=== PATIENT | male | born 1955 | race Caucasian/White ===

== ENCOUNTER → 2016-07-02 | Outpatient (CLI) | payer OTHER ==
[~2016-07-02] MED LIST: CHOLESTEROL MEDS PO; CYCL10TA9 PO; HYDR-1231 PO; [UNRECOGNIZED DRUG - REMARK] PO
--- NOTE | 2016-07-02 14:23 | Diagnostic Imaging Report ---
PROCEDURE: CT urinary tract, rule out kidney stone. TECHNIQUE: Multiple contiguous axial images were obtained through the abdomen and pelvis without the use of intravenous contrast. INDICATION: Right flank pain x1 week. COMPARISON: None. FINDINGS: Included views of the lung bases show 4 mm micronodular density within the posterior margins of the left lower lobe (image 3, series 2). CT abdomen: There is a 7 mm calculus within the proximal right ureter near the UPJ. As a result, there is moderate proximal hydronephrosis. There is also a large nonobstructive calculus within the superior pole of the right kidney measuring 1.4 x 0.9 cm. Punctate nonobstructive calculus is also seen within the inferior pole of the right kidney. A few punctate nonobstructive renal calculi are also noted on the left. No ureteral calculi are seen on the left. Additionally, there is no hydroureteronephrosis or other evidence of obstruction on the left. No renal mass-type lesions are identified on this noncontrast exam. The spleen, liver, adrenal glands, and pancreas have an unremarkable noncontrast CT appearance as well. Small bowel loops are nondistended. Normal appendix is identified. There is colonic diverticulosis, but no CT evidence of acute diverticulitis. There is no loculated fluid collection, free fluid, nor free air. No abnormal mesenteric or retroperitoneal adenopathy is seen. Bony structures show no acute abnormalities. CT pelvis: Urinary bladder is unopacified. No calculi are seen within the urinary bladder. There is no loculated fluid collection, free fluid, nor free air within the pelvis. No abnormal lymph nodes are seen. Bony structures show no acute abnormalities. IMPRESSION: 1. Moderate right-sided hydronephrosis secondary to a large 7 mm calculus in the proximal right ureter at the UVJ. 2. Additional nonobstructive bilateral renal calculi as described above. Again, there is an additional large stone within the superior pole of the right kidney. 3. Colonic diverticulosis, but no CT evidence of acute diverticulitis. 4. Small 4 mm subpleural micronodule within the posterior margins of the left lower lobe. If patient is in a high-risk category such as history of smoking, one-year followup is recommended. Alternatively, if patient is in a low-risk category, no additional followup may be indicated. Dictated by: Dictated on workstation # [id number]
== END ==
LOC: RAD 13:40
DX: N13.30 Unspecified hydronephrosis (principal); N20.0 Calculus of kidney; K57.90 Diverticulosis of intestine, part unspecified, without perforation or abscess without bleeding; R91.1 Solitary pulmonary nodule
CPT/HCPCS: 74176

== ENCOUNTER 2016-07-05 05:40 | Outpatient (CLI) | payer OTHER ==
[~2016-07-05] VITALS: Ht 177.8 cm; Wt 74.8 kg
[2016-07-05] MEDS ORDERED: FENO134C PO (13:28)
[2016-07-05] MEDS ORDERED: BENA20TA2 PO (13:28)
== END 2016-07-05 13:30 ==
LOC: PREOP 05:40
PROVIDERS: ATTEND Urology
DX: Z01.818 Encounter for other preprocedural examination (principal); N20.0 Calculus of kidney

== ENCOUNTER 2016-07-09 08:18 | Day surgery (SDC) | payer OTHER ==
[~2016-07-09] VITALS: Ht 177.8 cm; Wt 74.8 kg
[~2016-07-09 08:18] MED LIST changes: +BENA20TA2 PO; +FENO134C PO
--- NOTE | 2016-07-09 08:40 | Progress Note-Pre Operative ---
Pre-Operative Progress Note H&P Reviewed The H&P was reviewed, patient examined and no changes noted. Date H&P Reviewed: July 09, 2016 Time H&P Reviewed: 08:40 Pre-Operative Diagnosis: RT RENAL STONE KAMLESH DU MD July 09, 2016 8:40 am
--- NOTE | 2016-07-09 08:41 | Progress Note-Post Operative ---
Post-Operative Progess Note Surgeon (s)/Chair Car Driver (s) Surgeon KAMLESH DU MD Chair Car Driver: N/A Pre-Operative Diagnosis RT URETERAL AND BILATERAL RENAL STONES Post-Operative Diagnosis SAME Procedure & Operative Findings Date of Procedure 07/09/16 Procedure Performed/Findings RT ESWL Anesthesia Type GENERAL Estimated Blood Loss Estimated blood loss (mL): N/A Specimens/Packing Specimens Removed N/A KAMLESH DU MD July 09, 2016 8:41 am
--- NOTE | 2016-07-09 08:43 | Discharge Inst-Urology ---
Discharge Inst-Urology Discharge Medications New, Converted, or Re-newed RX: RX on Chart Patient Instructions/Follow Up Plan Please make appointment to been seen in office Saturday 07/22. KUB prior to it KUB on way home Post ESWL instructions Increase oral fluids for 48 hours and then as needed. Diet and Activity as tolerated. If questions or concerns contact your physician Or seek help at emergency department. KAMLESH DU MD July 09, 2016 8:43 am
--- NOTE | 2016-07-09 08:47 | Progress Note-Pre Operative ---
Pre-Operative Progress Note H&P Reviewed The H&P was reviewed, patient examined and no changes noted. Date H&P Reviewed: July 09, 2016 Time H&P Reviewed: 08:40 Pre-Operative Diagnosis: RT URETERAL AND BILATERAL RENAL STONES KAMLESH DU MD July 09, 2016 8:47 am
[2016-07-09] MEDS ORDERED: cefTRIAXone 1 GM (ROCEPHIN) VIAL ONE (09:07)
[2016-07-09] MEDS ORDERED: NS (IVPB) 50 ML ONE (09:07)
[2016-07-09] MEDS ORDERED: cefTRIAXone 1 GM/NS 50 ML IVPB IV ONE ×2 (09:15)
[2016-07-09] MEDS ORDERED: CATHETER FLUSH 10 ML SYR IV PRN (09:15)
[2016-07-09] MEDS: LACTATED RINGERS 1,000 ML IV PRN ×2 (09:26→10:58)
[2016-07-09] MEDS ORDERED: fentaNYL INJECTION 100 MCG/2 ML AMP ONE (10:14)
[2016-07-09] MEDS ORDERED: MIDAZOLAM 2 MG/2 ML (VERSED) VIAL ONE (10:14)
[2016-07-09 10:30] VITALS: BP 149/99
--- NOTE | 2016-07-09 11:03 | Diagnostic Imaging Report ---
EXAMINATION: KUB. INDICATION: Right-sided stones. FINDINGS: There is a 1.5 cm upper pole right kidney stone and a 1.1 cm proximal right ureteric stone at the upper L4 level. There are multiple phleboliths in the pelvis. IMPRESSION: Proximal right ureteric 1.1 cm stone. 1.5 cm upper pole right kidney stone. Dictated by: Dictated on workstation # [id number]
[2016-07-09] MEDS ORDERED: proPOfol 200 MG/20 ML (DIPRIVAN) VIAL IV ONE (11:19)
[2016-07-09] MEDS ORDERED: DEXAMETHASONE PF 10 MG/ML (DECADRON) VIAL ONE (11:19)
[2016-07-09] MEDS ORDERED: LACTATED RINGERS 2,000 ML IV ONE (11:19)
[2016-07-09] MEDS ORDERED: LIDOCAINE PF 2% 10 ML (XYLOCAINE) AMP ONE (11:19)
[2016-07-09] MEDS ORDERED: KETOROLAC 30 MG/ML VIAL ONE (11:19)
[2016-07-09] MEDS ORDERED: SEVOFLURANE (ULTANE) 15 ML INHAL SOLN ONE (11:19)
[2016-07-09] MEDS ORDERED: FUROSEMIDE 40 MG/4 ML INJ (LASIX) ONE (11:19)
[2016-07-09] MEDS ORDERED: morphine INJ 10 MG/ML 1ML (SYR OR VIAL) IVP PRN (11:30)
[2016-07-09] MEDS ORDERED: MEPERIDINE (DEMEROL) INJ 50 MG/ML IVP PRN (11:30)
[2016-07-09] MEDS ORDERED: ONDANSETRON 4 MG/2 ML (SDV) Z0FRAN IVP PRN (11:30)
[2016-07-09 12:00] VITALS: BP 143/84
[2016-07-09] MEDS ORDERED: NITR-65 PO (12:22)
[2016-07-09] MEDS ORDERED: TAMS0.4C98 PO (12:22)
[2016-07-09] MEDS ORDERED: HYDR-3876 PO (12:22)
[2016-07-09 12:30] VITALS: BP 139/83
[2016-07-09 13:00] VITALS: BP 127/85
--- NOTE | 2016-07-09 13:11 | Diagnostic Imaging Report ---
INDICATION: Status post ESWL. COMPARISON: Earlier same day. FINDINGS: 2 radiographic views of the abdomen were obtained. Again identified are extraosseous calcifications projecting of the superior pole of the right kidney and proximal right ureter. These are essentially unchanged in location. Multiple extraosseous calcifications are also seen projecting over the mid lower pelvis. These may be on the basis of pelvic phleboliths, although distal ureteral or urinary bladder calculi cannot be entirely excluded. No unexpected radiopaque foreign bodies are seen. Small bowel loops are nondistended. There is no large collection of free intraperitoneal air. IMPRESSION: 1. Right-sided renal and ureteral calculi stable in position when compared to earlier same day. 2. Probable pelvic phleboliths, although distal ureteral or urinary bladder calculi cannot be excluded. Dictated by: Dictated on workstation # [id number]
[2016-07-09 13:30] VITALS: BP 127/85
--- NOTE | 2016-07-09 18:33 | OPERATIVE REPORT ---
DATE OF SERVICE: 07/09/2016 PREOPERATIVE DIAGNOSIS: Right proximal ureteral and bilateral renal stones. POSTOPERATIVE DIAGNOSIS: Right proximal ureteral and bilateral renal stones. OPERATION PERFORMED: Right extracorporeal shock wave lithotripsy. ANESTHESIA: General. COMPLICATIONS: None. DESCRIPTION OF PROCEDURE: Under satisfactory anesthesia, with the patient in supine position on the ESWL table, we localized the right proximal ureteral stone and delivered shocks at kV of 6, a total of 3000 shocks completely fragmented the stone with good layering and fainting. The patient was given 40 mg of Lasix and 30 mg of Toradol IV at the end of the procedure. He tolerated the procedure well and was taken to the recovery room in stable condition. PLAN: I will see him back in a couple of weeks at the office and if the KUB shows good results we will proceed with ESWL of the upper pole right renal stone. Job ID: [id number] DocumentID: [id number] Dictated Date: 07/09/2016 11:02:58 Work Checker Date: 07/09/2016 18:32:53 Dictated By: KAMLESH DU MD
== END 2016-07-09 13:30 | disposition home or self-care (01) ==
LOC: SDC 08:18
PROVIDERS: ATTEND Urology
DX: N20.2 Calculus of kidney with calculus of ureter (principal); I10 Essential (primary) hypertension; E78.5 Hyperlipidemia, unspecified; Z79.899 Other long term (current) drug therapy
CPT/HCPCS: 74000; 87081

== ENCOUNTER → 2016-07-18 | Outpatient (CLI) | payer OTHER ==
[~2016-07-18] MED LIST changes: +HYDR-3876 PO; +NITR-65 PO; +TAMS0.4C98 PO
== END ==
LOC: PREOP 05:31
PROVIDERS: ATTEND Urology
DX: Z01.818 Encounter for other preprocedural examination (principal); N20.0 Calculus of kidney

== ENCOUNTER → 2016-07-22 | Outpatient (CLI) | payer OTHER ==
[~2016-07-22] MED LIST changes: +NITR-68 PO
--- NOTE | 2016-07-22 15:52 | Diagnostic Imaging Report ---
KUB. INDICATION: Right ureteric stone post lithotripsy. FINDINGS: There is a 1.6 cm upper pole right kidney stone. There are other stones in the proximal right ureter measuring up to 5 mm in size. These are probably fragments after lithotripsy of a larger stone. Other more proximal fragments about the UPJ level are suggested. There are multiple pelvic calcifications, likely phleboliths. IMPRESSION: Right kidney and proximal ureteric stones. Dictated by: Dictated on workstation # [id number]
== END ==
LOC: RAD 15:17
PROVIDERS: ATTEND Urology
DX: N20.2 Calculus of kidney with calculus of ureter (principal)
CPT/HCPCS: 74000

== ENCOUNTER → 2016-07-23 | Day surgery (SDC) | payer OTHER ==
[~2016-07-23] VITALS: Ht 177.8 cm; Wt 74.8 kg
[~2016-07-23] MED LIST changes: +KETOROLAC 30 MG/ML VIAL IVP ONE; +LACTATED RINGERS 1,000 ML IV ONE; +LIDOCAINE PF 2% 5 ML (XYLOCAINE) VIAL ONE; +MIDAZOLAM 2 MG/2 ML (VERSED) VIAL ONE; +NS (IVPB) 50 ML ONE; +ONDANSETRON 4 MG/2 ML (SDV) Z0FRAN ONE; +SEVOFLURANE (ULTANE) 15 ML INHAL SOLN ONE; +cefTRIAXone 1 GM (ROCEPHIN) VIAL ONE; +cefTRIAXone 1 GM/NS 50 ML IVPB IV ONE; +fentaNYL INJECTION 100 MCG/2 ML AMP IVP PRN; +fentaNYL INJECTION 100 MCG/2 ML AMP ONE; +proPOfol 200 MG/20 ML (DIPRIVAN) VIAL IV ONE
[2016-07-23 06:35] VITALS: BP 122/77
[2016-07-23] MEDS: LACTATED RINGERS 1,000 ML IV PRN ×2 (07:00→07:50)
--- NOTE | 2016-07-23 07:00 | Progress Note-Pre Operative ---
Pre-Operative Progress Note H&P Reviewed The H&P was reviewed, patient examined and no changes noted. Date Seen by Provider: Jul 23, 2016 Time Seen by Provider: 07:00 Date H&P Reviewed: Jul 23, 2016 Time H&P Reviewed: 07:00 Pre-Operative Diagnosis: RT PROXIMAL URETERAL AND RENAL STONES KAMLESH DU MD Jul 23, 2016 7:00 am
--- NOTE | 2016-07-23 07:46 | Progress Note-Post Operative ---
Post-Operative Progess Note Surgeon (s)/Caseworker Protective Services (s) Surgeon KAMLESH DU MD Caseworker Protective Services: N/A Pre-Operative Diagnosis RT PROXIMAL URETERAL AND RENAL STONES Post-Operative Diagnosis SAME Procedure & Operative Findings Date of Procedure 07/23/16 Procedure Performed/Findings RT ESWL, FINDINGS PER ABOVE Anesthesia Type GENERAL Estimated Blood Loss Estimated blood loss (mL): N/A Specimens/Packing Specimens Removed N/A KAMLESH DU MD Jul 23, 2016 7:46 am
--- NOTE | 2016-07-23 07:51 | Discharge Inst-Urology ---
Discharge Inst-Urology Discharge Medications New, Converted, or Re-newed RX: RX on Chart Patient Instructions/Follow Up Plan Please make appointment to been seen in office Saturday 08/05, KUB prior to it KUB on way home Post ESWL instructions Increase oral fluids for 48 hours and then as needed. Diet and Activity as tolerated. If questions or concerns contact your physician Or seek help at emergency department. KAMLESH DU MD Jul 23, 2016 7:51 am
--- NOTE | 2016-07-23 08:24 | Diagnostic Imaging Report ---
INDICATION: Post ESWL Study compared to 07/22/2016. Largest opaque calculus projects over the upper pole calyx of the right kidney and measures about 16 mm in maximal dimension unchanged. Stones project between the distal tips of the right third and fourth lumbar transverse processes the largest measuring 7.2 mm cephalocaudal is not significantly changed. There are multiple pelvic phleboliths which could obscure distal ureteral stone burden. Substantial change from priors not clearly evident. IMPRESSION: Right-sided nephrolithiasis and ureteral stones, pelvic calcifications appearing unchanged. Dictated by: Dictated on workstation # [id number]
--- NOTE | 2016-07-23 08:40 | Anesthesia-General Post-Op ---
General Patient Condition Mental Status/LOC: Same as Preop Cardiovascular: Satisfactory Nausea/Vomiting: Absent Respiratory: Satisfactory Pain: Controlled Complications: Absent Post Op Complications Complications None Follow Up Care/Instructions Patient Instructions None needed. Anesthesia/Patient Condition Patient Condition Patient is doing well, no complaints, stable vital signs, no apparent adverse anesthesia problems. No complications reported per nursing. [place] [facility] [place]: MAURY Narvaez DO Jul 23, 2016 08:40
[2016-07-23 09:00] VITALS: BP 115/67
[2016-07-23 09:30] VITALS: BP 124/82
--- NOTE | 2016-07-23 09:53 | Diagnostic Imaging Report ---
EXAMINATION: KUB. INDICATION: Right ureteric stones post lithotripsy. FINDINGS: There is interval passage or extraction of the right ureteric stone. The right kidney stone measuring 1.5 CM is again seen. Multiple other calcifications of the pelvis are likely phleboliths. No definite remaining right ureteric stone. IMPRESSION: 1.5 CM right kidney stone. Dictated by: Dictated on workstation # [id number]
[2016-07-23 10:00] VITALS: BP 118/75
[2016-07-23 10:12] VITALS: BP 118/75
--- NOTE | 2016-07-23 11:02 | OPERATIVE REPORT ---
DATE OF SERVICE: 07/23/2016 PREOPERATIVE DIAGNOSIS: Right proximal urethral and bilateral renal stones. POSTOPERATIVE DIAGNOSIS: Right proximal urethral and bilateral renal stones. OPERATION PERFORMED: Right ESWL. SURGEON: Floyd Du MD ANESTHESIA: General. COMPLICATIONS: None. PROCEDURE: Under satisfactory general anesthesia, the patient in supine position on the ESWL table, the right proximal ureteral stone was localized. Shock was delivered at gradually increasing kV to 6, a total of 3000 shocks completed fragmented the stone and we were unable to see it. Taking a look at and mapping the right upper renal stone, it looked exactly taking the shape of the upper pole marlen. There was no way for the stone to go through the infundibulum so I did not see any reason to fragment it and carry more chance of fragments and possibly obstruction since the stone is asymptomatic and not causing any harm at all. So I left it alone, did not do ESWL on it. The patient received 30 mg of Toradol and 40 mg of Lasix at the end of the procedure. He tolerated the procedure and anesthesia well and was sent to the recovery room in stable condition. Job ID: [id number] DocumentID: [id number] Dictated Date: 07/23/2016 07:53:55 Dividend Deposit Entry Clerk Date: 07/23/2016 11:01:08 Dictated By: FLOYD DU MD
--- NOTE | 2016-07-23 14:32 | Anesthesia-General Post-Op ---
General Patient Condition Mental Status/LOC: Same as Preop Cardiovascular: Satisfactory Nausea/Vomiting: Absent Respiratory: Satisfactory Pain: Controlled Complications: Absent Post Op Complications Complications None Follow Up Care/Instructions Patient Instructions None needed. Anesthesia/Patient Condition Patient Condition Patient is doing well, no complaints, stable vital signs, no apparent adverse anesthesia problems. No complications reported per nursing. [place] [facility] [place]: MAURY Narvaez DO Jul 23, 2016 14:32
== END | disposition home or self-care (01) ==
LOC: SDC 06:29
PROVIDERS: ATTEND Urology
DX: N20.2 Calculus of kidney with calculus of ureter (principal); I10 Essential (primary) hypertension; E78.00 Pure hypercholesterolemia, unspecified; Z79.899 Other long term (current) drug therapy
CPT/HCPCS: 74000; 87081

== ENCOUNTER → 2016-08-05 | Outpatient (CLI) | payer OTHER ==
[~2016-08-05] MED LIST changes: -KETOROLAC 30 MG/ML VIAL IVP ONE; -LACTATED RINGERS 1,000 ML IV ONE; -LIDOCAINE PF 2% 5 ML (XYLOCAINE) VIAL ONE; -MIDAZOLAM 2 MG/2 ML (VERSED) VIAL ONE; -NS (IVPB) 50 ML ONE; -ONDANSETRON 4 MG/2 ML (SDV) Z0FRAN ONE; -SEVOFLURANE (ULTANE) 15 ML INHAL SOLN ONE; -cefTRIAXone 1 GM (ROCEPHIN) VIAL ONE; -cefTRIAXone 1 GM/NS 50 ML IVPB IV ONE; -fentaNYL INJECTION 100 MCG/2 ML AMP IVP PRN; -fentaNYL INJECTION 100 MCG/2 ML AMP ONE; -proPOfol 200 MG/20 ML (DIPRIVAN) VIAL IV ONE
--- NOTE | 2016-08-05 13:57 | Diagnostic Imaging Report ---
INDICATION: Right nephrolithiasis. FINDINGS: There is a 15 mm calculus in the mid portion of the right kidney with a maximum length of 14 mm. There is a 3 mm stone projecting over the inferior pole of the right kidney. No calculi are seen on the left. There are multiple calcified phleboliths in the pelvis. Bowel gas pattern is normal. IMPRESSION: Right nephrolithiasis. No appreciable change since 07/23/2016. Dictated by: Dictated on workstation # [id number]
== END ==
LOC: RAD 13:41
PROVIDERS: ATTEND Urology
DX: N20.0 Calculus of kidney (principal)
CPT/HCPCS: 74000